=== PATIENT | male | born 1945 | race Caucasian/White ===

== ENCOUNTER → 2020-06-26 | Outpatient (CLI) | payer OTHER ==
[~2020-06-26] MED LIST: ALLO100T30 PO; ATEN50TA41 PO; CHOL10003 PO; DOXY1TAB2 PO; DULO60CA7 PO; FINA5TAB4 PO; LOSA50TA14 PO; MULT-449 PO; SAW/1TAB2 PO; TAMS-11 PO; VITA1CAP PO; ZINC50TA40 PO
[2020-06-26 12:53] LABS: CHLORIDE 109 mmol/L (98-107)
[2020-06-26 12:55] LABS: MICROSCOPIC NOT IND
[2020-06-26 13:07] LABS: ALANINE AMINOTRANSFERASE 38 U/L (12-78); ALBUMIN 4.6 g/dL (3.4-5.0); ALKALINE PHOSPHATASE 79 U/L (45-117); ANION GAP 5 mmol/L (5-15); BILIRUBIN,TOTAL 0.7 mg/dL (0.2-1.0); CALCIUM 9.4 mg/dL (8.5-10.1); CREATININE 1.04 mg/dL (0.7-1.3); TOTAL PROTEIN 8.2 g/dL (6.4-8.2)
== END | disposition home or self-care (01) ==
LOC: STAR 11:11
PROVIDERS: ATTEND Urology
DX: Z01.812 Encounter for preprocedural laboratory examination (principal); Z20.822 Contact with and (suspected) exposure to COVID-19; I44.4 Left anterior fascicular block; R94.31 Abnormal electrocardiogram [ECG] [EKG]; N20.0 Calculus of kidney
CPT/HCPCS: 36415; 80053; 81003; 87086; 93005; U0003

== ENCOUNTER 2020-07-02 05:26 | Day surgery (SDC) | payer MEDICARE, OTHER ==
[~2020-07-02] VITALS: Ht 195.6 cm; Wt 128.2 kg
[2020-07-02 06:22] VITALS: BP 130/80
[2020-07-02] MEDS ORDERED: CHLORHEXIDINE 15 ML UDC MM ONE (06:30)
[2020-07-02] MEDS ORDERED: LACTATED RINGERS 1,000 ML IV SCH (06:30)
[2020-07-02] MEDS ORDERED: MIDAZOLAM 1 MG/ML, 2ML ONE (07:08)
[2020-07-02] MEDS ORDERED: FENTANYL PF 100 MCG/2ML ONE (07:09)
[2020-07-02] MEDS ORDERED: PROPOFOL 10 MG/ML, 20ML ONE (07:11)
[2020-07-02] MEDS ORDERED: EPHEDRINE 50 MG/ML, 1ML ONE (07:23)
[2020-07-02] MEDS ORDERED: LABETALOL 5MG/ML, 20ML IV PRN (08:30)
[2020-07-02] MEDS ORDERED: hydrALAzine 20 MG/ML, 1ML IV PRN (08:30)
[2020-07-02] MEDS ORDERED: HYDROmorphone 1 MG/ML, 1ML INJ IVPush PRN (08:30)
[2020-07-02] MEDS ORDERED: FENTANYL PF 100 MCG/2ML IV PRN (08:30)
[2020-07-02] MEDS ORDERED: ACETAMINOPHEN 325 MG TABLET PO PRN (08:30)
[2020-07-02] MEDS ORDERED: ONDANSETRON 2MG/ML, 2ML IVPush PRN (08:30)
[2020-07-02] MEDS ORDERED: OXYcodone 5 MG/5 ML ORAL.SOL UDC PO PRN (08:30)
[2020-07-02] MEDS ORDERED: ONDANSETRON 2MG/ML, 2ML IV PRN (09:00)
== END 2020-07-02 11:35 | disposition home or self-care (01) ==
LOC: OUT 05:26
PROVIDERS: ATTEND Urology
DX: N20.0 Calculus of kidney (principal); I10 Essential (primary) hypertension; E78.5 Hyperlipidemia, unspecified; N40.0 Benign prostatic hyperplasia without lower urinary tract symptoms
CPT/HCPCS: 50590; J2250; J2704; J3010; J7120